=== PATIENT | male | born 1955 | race Caucasian/White ===

== ENCOUNTER 2021-09-15 11:27 | Emergency (ER) | payer MEDICAID ==
[2021-09-15 11:38] VITALS: BP 134/61; PULSE 70
[2021-09-15] MEDS ORDERED: Sodium Chloride 0.9% 10 ML Syringe FLUSH PRN (11:59)
[2021-09-15] MEDS: Cephalexin 250 MG Cap PO ONE (12:23)
[2021-09-15] MEDS: cefTRIAXone 2 GM in Sodium Chloride 0.9% 100 ML IV ONE (12:23)
[2021-09-15 12:43] LABS: ANION GAP 5.8 meq/L (7-15); CHLORIDE,CL 105 mmol/L (98-107); SODIUM,NA 141 mmol/L (136-145)
[2021-09-15] MEDS: Norflurane/HFc 245FA Medium Stream Spray 103.5 ML Can ONE (13:06)
== END 2021-09-15 13:25 | disposition home or self-care (01) ==
LOC: LL.ED 11:27
DX: L03.115 Cellulitis of right lower limb (principal); L02.415 Cutaneous abscess of right lower limb
CPT/HCPCS: 10060; 36415; 80053; 85025; 87070; 87186; 87205; 96365; 99283-25; 99284; A9270-GY; J0696